=== PATIENT | male | born 1985 | race Caucasian/White ===

== ENCOUNTER 2022-06-14 10:20 | Outpatient (CLI) | payer BC, SELFPAY ==
--- NOTE | ~2022-06-14 | XR_ITS ---
EXAMINATION: XR foot LT min 3V DATE: 06/14/2022 10:33 INDICATION: Left foot pain TECHNIQUE: Dorsoplantar, lateral, and 2 oblique views of the left foot were obtained. COMPARISON: None. FINDINGS: No fracture, dislocation, or subluxation. There is fusion fifth distal interphalangeal join t, normal variant. The bones, soft tissues, and joint spaces are otherwise normal. IMPRESSION: 1. No acute osseous abnormality. Reviewed, dictated and finalized at location A. [employer]
== END 2022-06-14 10:21 | disposition home or self-care (01) ==
PROVIDERS: PCP Family Medicine; Visit Provider Family Medicine
DX: M79.676 Pain in unspecified toe(s) (principal)
CPT/HCPCS: 73630

== ENCOUNTER 2023-12-26 09:36 | Outpatient (CLI) | payer BC, SELFPAY ==
--- NOTE | ~2023-12-26 | XR_ITS ---
EXAMINATION: XR_CERV2-3V_CR DATE: 12/26/2023 09:50 INDICATION: Neck pain. TECHNIQUE: 4 views of cervical spine were obtained. COMPARISON: None. FINDINGS: There is 13 degrees levoscoliosis of cervicothoracic spine. Vertebral body heights are norm al. There is mildly decreased disc height at C5-C6 and C6-C7. There is mild facet joint osteoarthriti s in lower cervical spine. There is mild central canal stenosis at C5-C6 and C6-C7. No prevertebral s oft tissue swelling. IMPRESSION: 1. Mild cervical spondylosis. 2. Cervicothoracic levoscoliosis. Reviewed, dictated and finalized at location A.
== END 2023-12-26 09:37 | disposition home or self-care (01) ==
LOC: ANHBWCIMG 09:37
PROVIDERS: PCP Nurse Practitioner Adult Health; Visit Provider Nurse Practitioner Adult Health
DX: M47.812 Spondylosis without myelopathy or radiculopathy, cervical region (principal); M41.9 Scoliosis, unspecified
CPT/HCPCS: 72040

== ENCOUNTER 2024-01-07 08:30 | Outpatient (CLI) | payer BC, SELFPAY ==
[2024-01-07 18:45] LABS: Basophils Percent Auto 0.5 % (0.2-1.2); Eosinophils Absolute Auto 0.1 K/mm3 (0-0.3); Eosinophils Percent Auto 2.2 % (0-4.4); Hematocrit 50.5 % (42.0-52.0); Hemoglobin 16.4 g/dL (14.0-18.0); Immature Granulocyte Absolute 0.01 K/mm3 (0.00-0.031); Immature Granulocyte Percent A 0.2 % (0-0.5); Lymphocytes Absolute Auto 2.18 K/mm3 (0.9-3.2); Lymphocytes Percent Auto 34.1 % (18.3-44.2); Mean Corpuscular HGB Conc 32.5 g/dl (32-36); Mean Corpuscular Hemoglobin 28.1 pg (26-34); Mean Corpuscular Volume 86.5 fl (80-100); Mean Platelet Volume 9.7 fl (7.4-10.4); Monocytes Absolute Auto 0.7 K/mm3 (0.1-0.6); Monocytes Percent Auto 11.3 % (2.6-8.5); Neutrophils Absolute Auto 3.3 K/mm3 (1.3-6.7); Neutrophils Percent Auto 51.7 % (45.5-73.1); Platelet Count Result 293 k/mm3 (150-375); Red Blood Count 5.84 M/mm3 (4.6-6.20); Red Cell Distribution Width 13.6 % (11.5-14.5); White Blood Count 6.4 K/mm3 (4.5-10.0)
[2024-01-07 18:53] LABS: Alanine Aminotransferase 53 U/L (6-50); Albumin Level 4.9 g/dL (3.5-5.1); Alkaline Phosphatase 76 U/L (38-126); Anion Gap 12 mmol/L (4-12); Aspartate Amino Transferase 86 U/L (17-59); Bilirubin,Total 0.6 mg/dL (0.2-1.3); Blood Urea Nitrogen 18 mg/dL (9-20); Calcium 9.9 mg/dL (8.4-10.2); Carbon Dioxide 26 mmol/L (22-30); Chloride 101 mmol/L (98-107); Cholesterol 209 mg/dL (0-200); Estimated Glomerular Filt Rate > 60; Glucose 88 mg/dL (65-110); HDL Direct 39 mg/dL; Magnesium 2.4 mg/dL (1.6-2.3); Potassium 4.5 mmol/L (3.4-5.0); Sodium 139 mmol/L (137-145); Triglycerides 144 mg/dL (<150)
[2024-01-07 19:04] LABS: LDL Cholesterol Direct 126 mg/dL
[2024-01-07 19:28] LABS: Hemoglobin A1C 5.7 % (<5.7)
== END 2024-01-07 08:31 | disposition home or self-care (01) ==
LOC: ANHBWCLAB 08:32
PROVIDERS: PCP Nurse Practitioner Adult Health; Visit Provider Nurse Practitioner Adult Health
DX: I10 Essential (primary) hypertension (principal); Z13.1 Encounter for screening for diabetes mellitus
CPT/HCPCS: 36415; 80053; 80061; 83036; 83735; 84443; 85025

== ENCOUNTER 2024-05-18 12:04 | Outpatient (CLI) | payer BC, SELFPAY | END 2024-05-18 12:05 | disposition home or self-care (01) | LOC: ANHBWCLAB 12:05 | PROVIDERS: PCP Nurse Practitioner Adult Health; Visit Provider Nurse Practitioner Adult Health | DX: R21 Rash and other nonspecific skin eruption (principal) | CPT/HCPCS: 36415; 86695; 86696 ==

== ENCOUNTER 2025-03-08 09:01 | Outpatient (CLI) | payer BC, SELFPAY ==
--- OUTSIDE RECORDS SUMMARY | 2025-03-08 09:32 | XMS_ITS | Clinical Summary ---
Author Organization [facility] Address [address] [place] [address] Care Team Providers Care Timber Faller Name Role Phone Rios Gates MD Primary Care Provider [phone] [facility],non-owned Affiliates and Associated Physician Practices is amultiple site organization consisting of ambulatory clinics and hospital sitesin [place], [place] and [place]. This disclosure is being madepursuant to the Care Everywhere program and may not contain all information available regarding this patient. Last updated 18.[facility] Allergies Active Allergy Reactions Criticality Noted Date Comments Loratadine Unknown Medications * Be aware that medications may not be up to date on this document. Alwaysverify current medications with the patient. benzoyl peroxide (PANOXYL AQ) 2.5 % gelIndications: Acne Vulgaris Apply to affected area once daily Reasons: Common Acne 1 tube 3 10/14/2018 Active Active Problems Problem Noted Date Diagnosed Date Migraine 02/19/2018 Family History Medical History Relation Name Comments Diabetes - Type 2 Maternal Grandfather Relation Name Status Comments Maternal Grandfather Social History Tobacco Use Types Packs/Day Years Used Date Smoking Tobacco: Never Smokeless Tobacco: Never Alcohol Use Standard Drinks/Week Comments Yes 0 (1 standard drink = 0.6 oz pur e alcohol) 6-10 Sex and Gender Information Value Date Recorded Sex Assigned at Not on file Legal Sex Male 4:59 PM [employer] Gender Identity Not on file Sexual Orientation Not on file 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 Not on file Not on file Last Filed Vital Signs Vital Sign Reading Time Taken Comments Blood Pressure 142/88 10/14/2018 4:43 PM CDT Pulse 67 10/14/2018 4:43 PM CDT Temperature 36.7 C (98.1 F) 10/14/2018 4:43 PM CDT Respiratory Rate - - Oxygen Saturation 99% 10/14/2018 4:43 PM CDT Inhaled Oxygen Concentration - - Weight 78 kg (172 lb) 10/14/2018 4:43 PM CDT Height 177.8 cm (5' 10) 10/14/2018 4:43 PM CDT Body Mass Index 24.68 10/14/2018 4:43 PM CDT Plan of Treatment Health Maintenance Due Date Last Done Comments HIV SCREENING 2001 HEPATITIS C SCREENING 05/21/2004 DTAP/TDAP/TD VACCINES (1 - Tdap) 2005 HEPATITIS B VACCINE (1 of 3 - 19+ 3-dose series) 2005 HPV VACCINE (1 - 3-dose SCDM series) 2013 DEPRESSION SCREENING 04/29/2024 COVID-19 VACCINE (1 - 2023-2 5 season) 2024 INFLUENZA VACCINE (#1) 2024 ZOSTER VACCINE (1 of 2) 2036 HIB VACCINE Aged Out No longer eligi ble based on patient's age to complete this topic MENINGOCOCCAL (Group B) VACC INE SHARED DECISION-MAKING Aged Out No longer eligibl e based on patient's age to complete this topic MENINGOCOCCAL GROUPS A/C/Y/W VACCINE Aged Out No longer eligible b ased on patient's age to complete this topic PNEUMOCOCCAL VACCINE Aged Out No long er eligible based on patient's age to complete this topic Insurance [facility] [place] [address] Care Teams Timber Faller Relationship Specialty Start Date End Date Rios Gates MD [address] [facility] [address] [place] [address] PCP - General Internal Medicine 07/11/17
[2025-03-08 18:47] LABS: Hematocrit 47.1 % (42.0-52.0); Hemoglobin 15.1 g/dL (14.0-18.0); Immature Granulocyte Percent A 0.4 % (0-0.5); Lymphocytes Absolute Auto 2.65 K/mm3 (0.9-3.2); Mean Corpuscular HGB Conc 32.1 g/dl (32-36); Mean Corpuscular Hemoglobin 27.5 pg (26-34); Mean Corpuscular Volume 85.6 fl (80-100); Nucleated Red Blood Cells Absolute Auto 0.000 K/mm3 (0.0-0.012); Nucleated Red Blood Cells Perc 0.0 % (0.0-0.2); Platelet Count Result 297 k/mm3 (150-375); Red Blood Count 5.50 M/mm3 (4.6-6.20); White Blood Count 9.5 K/mm3 (4.5-10.0)
[2025-03-08 19:15] LABS: Alanine Aminotransferase 50 U/L (6-50); Albumin Level 5.0 g/dL (3.5-5.1); Alkaline Phosphatase 75 U/L (38-126); Anion Gap 8 mmol/L (4-12); Aspartate Amino Transferase 70 U/L (17-59); Bilirubin,Total 0.6 mg/dL (0.2-1.3); Blood Urea Nitrogen 24 mg/dL (9-20); Calcium 10.3 mg/dL (8.4-10.2); Carbon Dioxide 29 mmol/L (22-30); Chloride 100 mmol/L (98-107); Cholesterol 233 mg/dL (0-200); Estimated Glomerular Filt Rate > 60; Glucose 99 mg/dL (65-110); HDL Direct 34 mg/dL; Magnesium 2.3 mg/dL (1.6-2.3); Potassium 4.2 mmol/L (3.4-5.0); Sodium 137 mmol/L (137-145); Total Protein 9.2 g/dL (6.3-8.2); Triglycerides 233 mg/dL (<150)
== END 2025-03-08 09:02 | disposition home or self-care (01) ==
PROVIDERS: PCP Nurse Practitioner Adult Health; Visit Provider Nurse Practitioner Adult Health
DX: I10 Essential (primary) hypertension (principal)
CPT/HCPCS: 36415; 80053; 80061; 83735; 85025